=== PATIENT | female | born 1990 | race Asian ===

== ENCOUNTER 2021-10-13 22:10 | Emergency (ER) | payer OTHER ==
[~2021-10-13] VITALS: Ht 157.5 cm; Wt 77.1 kg
[2021-10-13 22:15] VITALS: BP_SYST 147
[2021-10-13 23:15] VITALS: BP_SYST 131
[2021-10-13] MEDS ORDERED: LORazepam 1 MG TABLET PO ONE (23:15)
== END 2021-10-13 23:15 | disposition home or self-care (01) ==
LOC: SED 22:10
DX: T40.711A Poisoning by cannabis, accidental (unintentional), initial encounter (principal); F12.90 Cannabis use, unspecified, uncomplicated; R06.02 Shortness of breath; F41.9 Anxiety disorder, unspecified; E11.9 Type 2 diabetes mellitus without complications; Z79.899 Other long term (current) drug therapy; Y92.89 Other specified places as the place of occurrence of the external cause
CPT/HCPCS: 99283